=== PATIENT | male | born 1940 | race Caucasian/White ===

== ENCOUNTER 2017-06-11 21:34 | Inpatient (IN) | payer MEDICARE, OTHER ==
[~2017-06-11] VITALS: Ht 185.4 cm; Wt 74.6 kg
--- NOTE | 2017-06-11 00:15 | NUR ---
MS/RN NOTES RECEIVED PT FROM [facility] IN STABLE CONDITION. AA&OX4, RA. NO SOB NOTED. R AC IV #20G, SITE CDI AND PATENT. NGTUBE INTACT, AUSCULTATED AND POSITIVE FOR PLACEMENT, CONNECTED TO INTERMITTENT LOW SUCTION DRAINING 200 ML BILE LIQUID. C/O OF DISCOMFORT TO THROAT AREA. NO N/V. C/O OF ABDOMINAL DULL PAIN, 5/10. SKIN INTACT WITH L FA BRUISE, L SHOULDER SCAR S/P SX FROM FALL 6 MONTHS AGO (TRIPPED ON HIS PAJAMAS WHILE WALKING UP THE STAIRS). ALL EXTREMITIES +MOVEMENT. LAST BM 06/09/17, "MUSHY". V/S WNL. BED AT LOWEST POSITION AND LOCKED. SRX3 UP, BED ALARM ON. SIDE TABLE, EMESIS BAG AND CALL LOGAN WITHIN REACH. WILL CONTINUE TO MONITOR.
[2017-06-11 23:45] VITALS: BP 148/85
[2017-06-12] MEDS ORDERED: ACETAMINOPHEN 325 MG TABLET PO PRN (01:00)
[2017-06-12] MEDS ORDERED: ONDANSETRON HCL/PF 4 MG/2 ML VIAL IVP PRN (01:00)
[2017-06-12] MEDS ORDERED: Z GUARD REMEDY 2 OZ OINT TP PRN (01:00)
[2017-06-12] MEDS ORDERED: MAG HYDROX/AL HYDROX/SIMETH 30 ML UDC PO PRN (01:00)
[2017-06-12] MEDS ORDERED: PANTOPRAZOLE 40 MG VIAL IV SCH (01:00)
[2017-06-12] MEDS ORDERED: diphenhydrAMINE HCL 50 MG/ML VIAL IV PRN (01:00)
[2017-06-12] MEDS ORDERED: MAGNESIUM HYDROXIDE 30 ML UDC PO PRN (01:00)
[2017-06-12] MEDS ORDERED: HYDROMORPHONE INJ 2 MG/ML DISP.SYRIN ONE ×2 (01:28→04:43)
[2017-06-12] MEDS: HYDROMORPHONE INJ 2 MG/ML DISP.SYRIN IV PRN ×5 (01:34→18:22)
--- NOTE | 2017-06-12 01:34 | NUR ---
MS/RN NOTES PATIENT MADE AWARE OF MD ORDERS INCLUDING BLOOD DRAWN, MEDICATION AND IVF. PATIENT VERBALIZED UNDERSTANDING. C/O OF MID ABDOMINAL DULL PAIN, 7/10, NO N/V. NGT TO LOWER INTERMITTENT SUCTION WITH BILE LIQUID. ADMINISTERED DILAUDID IV PER MD ORDER. WILL MONITOR FOR EFFECTIVENESS. NAD.
[2017-06-12] MEDS: IV D5/0.45 NACL 1,000 ML IV PRN ×2 (01:42→16:34)
[2017-06-12] MEDS ORDERED: PANTOPRAZOLE 40 MG VIAL ONE (02:08)
--- NOTE | 2017-06-12 06:29 | NUR ---
MS/RN NOTES NO SIGNIFICANT CHANGES. IVF IN PROGRESS. NGT INTACT TO LOW INTERMITTENT SUCTION, DRAINING 425ML OF GREEN-BROWN DRAINAGE. VOMITED X 1 DURING SHIFT 50ML. GIVEN DILAUDID 0.5MG IV X 2 FOR MID ABDOMINAL PAIN, 6-03/23. PATIENT STATING PAIN MEDICATION LASTS ONLY FOR 1 HOUR. VOIDING VIA URINAL. ALL NEEDS MET. BED AT LOWEST POSITION AND LOCKED, SRX3 UP, SIDE TABLE AND CALL LOGAN WITHIN REACH. WILL ENDORSE TO AM SHIFT FOR CONTINUITY OF CARE. BED ALARM ON.
[2017-06-12 06:45] LABS: EOSINOPHILS % (AUTO) 0.1 % (0.0-6.0); HEMATOCRIT 41 % (39-51); HEMOGLOBIN 13.7 g/dL (13.5-17.5); LYMPHOCYTES # (AUTO) 0.6 /CMM (0.8-4.8); LYMPHOCYTES % (AUTO) 5.3 % (20.0-44.0); MEAN CORPUSCULAR HEMOGLOBIN 33 PG (26.0-33.0); MEAN CORPUSCULAR HGB CONC 34 g/dl (31.0-36.0); MEAN CORPUSCULAR VOLUME 97 fL (80-96); MONOCYTES # (AUTO) 0.3 /CMM (0.1-1.30); MONOCYTES % (AUTO) 2.8 % (2.0-12.0); NEUTROPHILS # (AUTO) 10.5 /CMM (1.8-8.9); NEUTROPHILS % (AUTO) 91.8 % (43.0-81.0); PLATELET COUNT (AUTO) 250 /CMM (150-450); RED BLOOD CELL COUNT(AUTO) 4.22 MIL/uL (4.5-6.0); WHITE BLOOD COUNT (AUTO) 11.4 K/uL (4.3-11.0)
[2017-06-12 07:14] LABS: ALANINE AMINOTRANSFERASE 19 U/L (12-78); ALBUMIN 3.1 g/dL (3.4-5.0); ALKALINE PHOSPHATASE 103 U/L (46-116); ASPARTATE AMINOTRANSFERASE 21 U/L (15-37); BILIRUBIN,TOTAL 0.5 mg/dL (0.2-1.0); CALCIUM, SERUM 8.9 mg/dL (8.5-10.1); CARBON DIOXIDE 24 mmol/L (21-32); CHLORIDE 109 mmol/L (98-107); GLUCOSE 175 mg/dL (74-106); PHOSPHORUS 3.3 mg/dL (2.5-4.9); POTASSIUM 4.5 mmol/L (3.5-5.1); SODIUM SERUM 143 mmol/L (136-145); TOTAL PROTEIN, SERUM 7.2 g/dL (6.4-8.2); UREA NITROGEN, BLOOD 16 mg/dL (7-18)
--- NOTE | 2017-06-12 07:51 | NUR ---
RN OPENING NOTES - PATIENT AWAKE, WITH NGT IN DRAINING GREENISH DRAINAGE, CONNECTED TO LOW INTERMITTENT SUCTION, ON LOW FOWLERS POSITION, CALL LIGHT WITHIN REACH.
[2017-06-12 08:00] VITALS: BP 130/76
[2017-06-12] MEDS ORDERED: HYDR-552 PO (08:23)
[2017-06-12] MEDS ORDERED: CAND1TAB16 PO (08:23)
[2017-06-12] MEDS ORDERED: GLUC500C2 PO (08:23)
[2017-06-12] MEDS ORDERED: ASPI81TA2 PO (08:23)
[2017-06-12] MEDS ORDERED: EFAV1TAB PO (08:23)
[2017-06-12] MEDS ORDERED: TRAM50TA2 PO (08:23)
[2017-06-12] MEDS: CEFTRIAXONE 1 G in IV D5W 50 ML IV SCH (11:42)
--- NOTE | 2017-06-12 14:55 | NUR ---
- Visited by family & was explained that abdominal x-ray was ordered by Dr. Ames for tomorrow to evaluate the obstruction,. Patient claimed not to be passing flatus , abdominal quadrants are quiet, very faint bowel sounds, but denies nausea & vomiting. Maintained on NPO .
[2017-06-12 16:00] VITALS: BP 128/71
[2017-06-12 16:23] VITALS: BP 128/71
--- NOTE | 2017-06-12 18:35 | NUR ---
RN CLOSING NOTES: - patient maintained on NPO , with NGT connected to intermittent low suction with greenish drainage , draining to drainage container amounting 400ml in container, denies nausea & vomiting, just received the PRN dilaudid for a pain level of 8 , claimed " medicine just reacts too short of a time". Explained to patient rationale of the ordered dose given by MD. Call light within reach., IV fluids infusing .
--- NOTE | 2017-06-12 19:40 | NUR ---
RN OPENING NOTES RECEIVED REPORT FROM ELIZA. PT AWAKE AND RESTING IN BED. NO APPARENT S/S OF DISTRESS OR SOB NOTED. PT HAS NGT AT LOW INTERMITTENT SUCTION WITH DARK GREENISH DRAINAGE. PT NPO CONTINUED. PT HAS R AC #20 IV, RUNNING D5 1/2 NS @75 ML/HR. PT TOLERATING WELL. PT IN LOW FOWLERS POSITION. SAFETY PRECAUTIONS IN PLACE. BE IN LOW, LOCKED POSITION, 2XSIDERAILS UP. CALL LIGHT WITHIN REACH. WILL CONTINUE TO MONITOR.
[2017-06-12 20:00] VITALS: BP 115/76
--- NOTE | 2017-06-13 01:35 | NUR ---
PT REQUESTED PAIN MEDICATION FOR PAIN LEVEL 8/10. WILL ADMINISTER PRN 1MG DILAUDID. WILL CONTINUE TO MONITOR PT.
[2017-06-13] MEDS: HYDROMORPHONE INJ 2 MG/ML DISP.SYRIN IV PRN ×2 (01:41→06:05)
[2017-06-13] MEDS: IV D5/0.45 NACL 1,000 ML IV PRN (05:28)
--- NOTE | 2017-06-13 05:55 | NUR ---
PT REQUESTED PAIN MEDICATION FOR PAIN LEVEL OF 8/10. WILL ADMINISTER PRN DILAUDID 1MG. WILL CONTINUE TO MONITOR.
[2017-06-13] MEDS ORDERED: HYDROMORPHONE INJ 2 MG/ML DISP.SYRIN ONE (06:01)
--- NOTE | 2017-06-13 06:02 | NUR ---
DILAUDID STK-MED NOT GIVEN. 1MG PRN DILAUDID GIVEN AND RECORDED. OMNICELL OUT OF DILAUDID WENT TO [facility] TO HAVE CHARGE NURSE OVERRIDE.
--- NOTE | 2017-06-13 06:46 | NUR ---
RN CLOSING NOTES PT AWAKE AND RESTING IN BED. NPO CONTINUED THROUGH THE NIGHT. NO APPARENT S/S OF DISTRESS OR SOB NOTED. PT HAS NGT AT LOW INTERMITTENT SUCTION WITH DARK GREENISH DRAINAGE. TOTAL DRAINAGE FOR THE SHIFT: 995ML. PT HAS R AC #20 IV, RUNNING D5 1/2 NS @75 ML/HR. PT TOLERATING WELL. PT IN LOW FOWLERS POSITION. SAFETY PRECAUTIONS IN PLACE. BE IN LOW, LOCKED POSITION, 2XSIDERAILS UP. CALL LIGHT WITHIN REACH. ALL PT NEEDS MET. WILL ENDORSE TO DAY SHIFT NURSE FOR CONTINUITY OF CARE.
[2017-06-13 07:27] LABS: BASOPHILS % (AUTO) 0.2 % (0.0-2.0); EOSINOPHILS # (AUTO) 0.2 /CMM (0.0-0.7); EOSINOPHILS % (AUTO) 2.2 % (0.0-6.0); HEMATOCRIT 36 % (39-51); HEMOGLOBIN 12.2 g/dL (13.5-17.5); LYMPHOCYTES # (AUTO) 1.4 /CMM (0.8-4.8); LYMPHOCYTES % (AUTO) 18.4 % (20.0-44.0); MEAN CORPUSCULAR HEMOGLOBIN 33 PG (26.0-33.0); MEAN CORPUSCULAR HGB CONC 34 g/dl (31.0-36.0); MEAN CORPUSCULAR VOLUME 97 fL (80-96); MONOCYTES # (AUTO) 0.6 /CMM (0.1-1.30); MONOCYTES % (AUTO) 8.3 % (2.0-12.0); NEUTROPHILS # (AUTO) 5.5 /CMM (1.8-8.9); NEUTROPHILS % (AUTO) 70.9 % (43.0-81.0); PLATELET COUNT (AUTO) 218 /CMM (150-450); RED BLOOD CELL COUNT(AUTO) 3.75 MIL/uL (4.5-6.0); WHITE BLOOD COUNT (AUTO) 7.7 K/uL (4.3-11.0)
[2017-06-13] MEDS: PANTOPRAZOLE 40 MG TABLET.DR PO SCH (07:30)
--- NOTE | 2017-06-13 07:30 | NUR ---
RN OPEN NOTES RECEIVED REPORT FROM GLASS FRAME FITTER NURSE. PATIENT IS IN BED, AWAKE, ALERT AND ORIENTED TO NAME, PLACE AND TIME. NO SIGNS AND SYMPTOMS OF DISTRESS. DENIED PAIN. BED IN LOW POSITION, LOCKED AND TWO SIDE RAILS ARE UP. CALL LIGHT IS WITHIN REACH FOR SAFETY. WILL CONTINUE TO MONITOR AND ASSESS PATIENT.
[2017-06-13 07:44] LABS: CHOLESTEROL 136 mg/dL (<200); HDL CHOLESTEROL 54 mg/dL (40-60); LDL 66 mg/dL (0-99); TRIGLYCERIDES 103 mg/dL (30-150)
[2017-06-13 07:45] LABS: ALANINE AMINOTRANSFERASE 20 U/L (12-78); ALBUMIN 2.7 g/dL (3.4-5.0); ALKALINE PHOSPHATASE 86 U/L (46-116); ASPARTATE AMINOTRANSFERASE 16 U/L (15-37); BILIRUBIN,TOTAL 0.3 mg/dL (0.2-1.0); CALCIUM, SERUM 8.4 mg/dL (8.5-10.1); CARBON DIOXIDE 27 mmol/L (21-32); CHLORIDE 109 mmol/L (98-107); CREATININE 0.9 mg/dL (0.6-1.3); GLUCOSE 121 mg/dL (74-106); MAGNESIUM 1.9 mg/dL (1.8-2.4); PHOSPHORUS 2.1 mg/dL (2.5-4.9); POTASSIUM 3.3 mmol/L (3.5-5.1); SODIUM SERUM 143 mmol/L (136-145); TOTAL PROTEIN, SERUM 6.6 g/dL (6.4-8.2); UREA NITROGEN, BLOOD 12 mg/dL (7-18)
[2017-06-13 08:00] VITALS: BP 128/69
--- NOTE | 2017-06-13 08:15 | NUR ---
NG TUBE PULLED PUT. WILL NOTIFY MD
--- NOTE | 2017-06-13 09:00 | NUR ---
DR DENNIS MADE AWARE OF NG TUBE. KUB ORDERED STAT TO CHECK IF NG IS STILL NEEDED
[2017-06-13] MEDS: CEFTRIAXONE 1 G in IV D5W 50 ML IV SCH (09:08)
--- NOTE | 2017-06-13 11:00 | NUR ---
DR DENNIS MADE AWARE OF KUB RESULTS. NO NEEDS TO NG TUBE AT THE MOMENT. PATIENT TO BE KEPT NPO
[2017-06-13] MEDS: POTASSIUM CL. PREMIX PERIPHER. 50 ML IV SCH ×3 (11:07→13:37)
[2017-06-13] MEDS ORDERED: Sodium Phosphate 15 MMOL in IV D5W 250 ML IV ONE (12:30)
[2017-06-13] MEDS ORDERED: FENTANYL PF 100MCG/2ML AMPUL IV PRN (14:30)
[2017-06-13 15:52] VITALS: BP 139/77
--- NOTE | 2017-06-13 18:58 | NUR ---
RN CLOSING NOTES PATIENT IS ALERT AND ORIENTED TO NAME PLACE AND TIME. NO SIGNS AND SYMPTOMS OF DISTRESS. STABLE DURING MY SHIFT. ALL PATIENT CARE ANTICIPATED AND ATTENDED. BED IN LOW POSITION, LOCKED AND TWO SIDE RAILS ARE UP. CALL LIGHT WITHIN REACH FOR SAFETY. WILL ENDORSER TO TRAFFIC AND TRANSPORT PLANNER NURSE.
--- NOTE | 2017-06-13 19:20 | NUR ---
MS RN OPENING NOTES: RECEIVED PT IN BED RESTING. PT A/OX4. URINAL AT BEDSIDE. NO SIGNS AND SYMPTOMS OF DISTRESS. BED IN LOW POSITION, LOCKED AND TWO SIDE RAILS ARE UP. CALL LIGHT WITHIN REACH FOR SAFETY. IV ON R AC #20G AND IS BEING INFUSED WITH IV D5 1/2 NS AT 75ML HR. WILL CONTINUE TO MONITOR PT.
[2017-06-13 20:00] VITALS: BP 144/80
[2017-06-14] MEDS: IV D5/0.45 NACL 1,000 ML IV PRN (00:02)
[2017-06-14] MEDS: PANTOPRAZOLE 40 MG TABLET.DR PO SCH (07:04)
--- NOTE | 2017-06-14 07:27 | NUR ---
RN OPEN NOTES RECEIVED REPORT FROM GRINDER SET UP OPERATOR THREAD NURSE. PATIENT IS IN BED, AWAKE. ALERT AND ORIENTED TO NAME, PLACE AND TIME. NO SIGN AND SYMPTOMS OF DISTRESS. BED IN LOW POSITION, LOCKED AND TWO SIDE RAILS ARE UP. CALL LIGHT WITHIN REACH FOR SAFETY. WILL CONTINUE TO MONITOR AND ASSESS PATIENT THROUGH OUT MY SHIFT
[2017-06-14 07:30] LABS: BASOPHILS % (AUTO) 0.1 % (0.0-2.0); EOSINOPHILS # (AUTO) 0.2 /CMM (0.0-0.7); EOSINOPHILS % (AUTO) 1.8 % (0.0-6.0); HEMATOCRIT 37 % (39-51); HEMOGLOBIN 12.6 g/dL (13.5-17.5); LYMPHOCYTES # (AUTO) 1.9 /CMM (0.8-4.8); LYMPHOCYTES % (AUTO) 20.3 % (20.0-44.0); MEAN CORPUSCULAR HEMOGLOBIN 33 PG (26.0-33.0); MEAN CORPUSCULAR HGB CONC 34 g/dl (31.0-36.0); MEAN CORPUSCULAR VOLUME 97 fL (80-96); MONOCYTES # (AUTO) 0.6 /CMM (0.1-1.30); NEUTROPHILS # (AUTO) 6.6 /CMM (1.8-8.9); NEUTROPHILS % (AUTO) 70.8 % (43.0-81.0); PLATELET COUNT (AUTO) 224 /CMM (150-450); RDW COEFFICIENT OF VARIATION 12.6 (11.5-15.0); RED BLOOD CELL COUNT(AUTO) 3.81 MIL/uL (4.5-6.0); WHITE BLOOD COUNT (AUTO) 9.3 K/uL (4.3-11.0)
[2017-06-14 07:52] LABS: CALCIUM, SERUM 8.6 mg/dL (8.5-10.1); CARBON DIOXIDE 25 mmol/L (21-32); CHLORIDE 107 mmol/L (98-107); CREATININE 0.9 mg/dL (0.6-1.3); GLUCOSE 103 mg/dL (74-106); POTASSIUM 3.3 mmol/L (3.5-5.1); SODIUM SERUM 142 mmol/L (136-145); UREA NITROGEN, BLOOD 10 mg/dL (7-18)
[2017-06-14 08:00] VITALS: BP 148/80
[2017-06-14] MEDS: CEFTRIAXONE 1 G in IV D5W 50 ML IV SCH (09:39)
[2017-06-14] MEDS ORDERED: POTASSIUM CHLORIDE 20 MEQ POWDER PACKET PO SCH (10:00)
--- NOTE | 2017-06-14 11:00 | NUR ---
PATIENT HAD A BIG BOWEL MOVEMENT. MADE AWARE
--- NOTE | 2017-06-14 14:03 | NUR ---
DR DENNIS NOTIFIED REGARDING MED RECON NOT DONE. HE WILL DO IT SOON HE CAN
[2017-06-14 16:00] VITALS: BP 141/77
--- NOTE | 2017-06-14 17:50 | NUR ---
MED RECON FAXED TO PHARMACY PER DR SONNY STEPHEN
[2017-06-14] MEDS ORDERED: HYDROCODONE/APAP 5/325MG 1 EACH TABLET PO PRN (18:00)
[2017-06-14] MEDS ORDERED: TRAMADOL HCL 50 MG TABLET PO PRN (18:00)
--- NOTE | 2017-06-14 18:26 | NUR ---
RN CLOSING NOTES PATIENT IS ALERT AND ORIENTED TO NAME PLACE AND TIME. NO SIGNS AND SYMPTOMS OF DISTRESS. STABLE DURING MY SHIFT. ALL PATIENT CARE ANTICIPATED AND ATTENDED. BED IN LOW POSITION, LOCKED AND TWO SIDE RAILS ARE UP. CALL LIGHT WITHIN REACH FOR SAFETY. WILL ENDORSER TO LEAD PL SQL DEVELOPER NURSE.
[2017-06-14] MEDS: EMTRICITABINE 200 MG CAPSULE PO SCH (18:51)
[2017-06-14] MEDS: EFAVIRENZ 600 MG TABLET PO SCH (18:51)
[2017-06-14] MEDS: TENOFOVIR DISOPROXIL FUMARATE 300 MG TABLET PO SCH (18:51)
--- NOTE | 2017-06-14 19:55 | NUR ---
RN OPENING NOTES PT RESTING IN BED. NO S/S OF PAIN OR DISTRESS. NO COMPLAINTS OF SOB. PT RIGHT AC #20 INTACT AND PATENT, SL. SAFETY PRECAUTIONS IN PLACE. BED IN LOW, LOCKED POSITION, 2XSIDE RAILS UP. CALL LIGHT WITHIN REACH. WILL CONTINUE TO MONITOR.
[2017-06-14 20:00] VITALS: BP 152/86
[2017-06-14] MEDS ORDERED: Medication Not On Formulary EA (Efavirenz/Emtricitab/Tenofovir (Atripla Tablet) 1 EACH) PO SCH (22:00)
--- NOTE | 2017-06-15 06:51 | NUR ---
RN CLOSING NOTES PT SLEEPING IN BED. NO S/S OF PAIN OR DISTRESS. NO COMPLAINTS OF SOB. PT RIGHT AC #20 INTACT AND PATENT, SL. PT AMBULATORY. ABLE TO WALK SAFELY TO THE RESTROOM. SAFETY PRECAUTIONS IN PLACE. BED IN LOW, LOCKED POSITION, 2XSIDE RAILS UP. CALL LIGHT WITHIN REACH. WILL ENDORSE TO DAY SHIFT NURSE FOR CONTINUITY OF CARE.
[2017-06-15 07:34] LABS: CALCIUM, SERUM 8.9 mg/dL (8.5-10.1); CARBON DIOXIDE 23 mmol/L (21-32); CHLORIDE 106 mmol/L (98-107); CREATININE 0.8 mg/dL (0.6-1.3); GLUCOSE 96 mg/dL (74-106); POTASSIUM 3.2 mmol/L (3.5-5.1); SODIUM SERUM 141 mmol/L (136-145); UREA NITROGEN, BLOOD 11 mg/dL (7-18)
[2017-06-15 08:00] VITALS: BP 141/75
--- NOTE | 2017-06-15 08:12 | NUR ---
RN OPENING NOTES PATIENT RESTING COMFORTABLY IN BED. AOX4. DENIES ANY PAIN. DENIES CP OR SOB. RESPIRATIONS EVEN AND UNLABORED. NO ACUTE DISTRESS. IV ACCESS ON THE RAC 20 G. D/C ANTICIPATED FOR TODAY. WILL F/U. BED LOCKED IN THE LOWEST POSITION WITH SIDE RAILS UP X2. CALL LIGHT WITHIN REACH. WILL CONTINUE TO MONITOR ASSESS AND EDUCATE PATIENT THROUGHOUT SHIFT.
[2017-06-15] MEDS ORDERED: HYDROCHLOROTHIAZIDE 25 MG TABLET PO SCH (09:00)
[2017-06-15] MEDS ORDERED: ASPIRIN 81 MG TAB.CHEW PO SCH (09:00)
[2017-06-15] MEDS ORDERED: GLUCOSAMINE SULFATE 500 MG PO SCH (09:00)
[2017-06-15] MEDS ORDERED: CANDESARTAN CILEXETIL 16 MG TABLET PO SCH (09:00)
[2017-06-15] MEDS ORDERED: Medication Not On Formulary EA (Candesartan/Hydrochlorothiazid (Candesartan-Hctz 32-12.5 PO SCH (09:00)
[2017-06-15] MEDS: EMTRICITABINE 200 MG CAPSULE PO SCH (09:02)
[2017-06-15] MEDS: TENOFOVIR DISOPROXIL FUMARATE 300 MG TABLET PO SCH (09:02)
[2017-06-15] MEDS: EFAVIRENZ 600 MG TABLET PO SCH (09:02)
[2017-06-15 09:03] VITALS: BP 141/75
[2017-06-15] MEDS: PANTOPRAZOLE 40 MG TABLET.DR PO SCH (09:03)
[2017-06-15] MEDS ORDERED: POTASSIUM CHLORIDE 20 MEQ TAB.PRT.SR PO ONE (09:30)
[2017-06-15] MEDS: CEFTRIAXONE 1 G in IV D5W 50 ML IV SCH (10:19)
--- NOTE | 2017-06-15 16:09 | NUR ---
CUPOLA TENDER NOTES PATIENT IS AOX4. DENIES ANY PAIN. DENIES SOB OR CP. RESPIRATIONS EVEN AND UNLABORED. NO ACUTE DISTRESS NOTES ALL NEEDS MET. ALL MEDS GIVEN. ALL DISCHARGE TEACHING GIVEN. ALL BELONGINGS ACCOUNTED FOR. EXITCARE PROVIDED. PATIENT TO CONTINUE ALL HOME MEDICATIONS. FOLLOW UP PCP 1 WEEK. PATIENT IN STABLE CONDITION DISCHARGED HOME. VS WNL.
== END 2017-06-15 12:15 | disposition home or self-care (01) | DRG 389 ==
LOC: MED 23:27
PROVIDERS: ADMIT Internal Medicine; ATTEND Internal Medicine
DX: K56.609 Unspecified intestinal obstruction, unspecified as to partial versus complete obstruction (principal); E44.1 Mild protein-calorie malnutrition; N39.0 Urinary tract infection, site not specified; M19.90 Unspecified osteoarthritis, unspecified site; G89.29 Other chronic pain; E87.6 Hypokalemia; Z87.891 Personal history of nicotine dependence; Z87.442 Personal history of urinary calculi; Z87.11 Personal history of peptic ulcer disease; I10 Essential (primary) hypertension; K57.30 Diverticulosis of large intestine without perforation or abscess without bleeding; K25.9 Gastric ulcer, unspecified as acute or chronic, without hemorrhage or perforation; K59.00 Constipation, unspecified; R73.9 Hyperglycemia, unspecified
CPT/HCPCS: 36415; 74000-TC; 80048-TC; 80053-TC; 80061-TC; 83735-TC; 84100-TC; 85025-TC; 87081-TC; A9563; C9113; J0696; J1170; J3010; J3480; J3490; J7040; J7060; Z7610